=== PATIENT | male | born 1985 | race Caucasian/White ===

== ENCOUNTER 2019-12-09 15:04 | Emergency (ER) | payer SELFPAY ==
[2019-12-09 15:10] VITALS: BP 143/107; PULSE 108; RESP 20; TEMP 36.4; O2SAT 100
--- NOTE | 2019-12-09 15:24 | ED.GENADULT ---
HPI - General Adult General Chief complaint: Upper Respiratory Infection Stated complaint: Clear for work Time Seen by Provider: 12/09/19 15:20 Source: patient and RN notes reviewed Mode of arrival: ambulatory Limitations: no limitations History of Present Illness HPI narrative: Patient presents today requesting a return note for work. Reports he was sick with's to include nasal congestion, rhinorrhea, and sinus pressure. Symptoms began 2 weeks ago and lasted for 1 week. He has not had any symptoms for 7 days. He has been at home for the past 14 days on self quarantine. He did not believe that he had COVID-19 But does not have a PCP for evaluation. His employer is requiring a note for him to return back to work. During his time of illness, patient never ran a fever. History of hypertension and diabetes, but currently takes no medications. MD complaint: cold symptoms. Related Data Home Medications Medication Instructions Recorded Confirmed No Home Medications 12/09/19 12/09/19 Allergies Allergy/AdvReac Type Severity Reaction Status Date / Time No Known Allergies Allergy Verified 12/09/19 15:22 Review of Systems Review of Systems: Narrative: CONSTITUTIONAL: Denies body aches, fever, chills, or sweats. EYES: Denies visual changes, redness, or discharge. ENT: Denies rhinorrhea, congestion, sore throat, or otalgia. CARDIOVASCULAR: Denies chest pain, palpitations, or edema. RESPIRATORY: Denies cough or dyspnea. GASTROINTESTINAL: Denies abdominal pain, nausea, vomiting, or diarrhea. GENITOURINARY: Denies dysuria or hematuria. SKIN: Denies rash, itching, or wounds. MUSCULOSKELETAL: Denies back pain, joint pain, or myalgia. NEUROLOGIC: Denies headache, numbness, tingling, or weakness. PSYCH: Denies depression or anxiety. [facility] Past Medical History Medical History (Updated 12/09/19 @ 15:32 by Christine Fernandez, THERAPEUTIC ASSISTANT, ) Diabetes Hypertension Comments At time of signature, I have reviewed and agree with nursing past medical, surgical, social and family history unless otherwise noted. Please see nursing chart for further information. There is no relevant family history pertinent to the presenting complaint Exam Narrative: Exam Narrative: GENERAL: Well-appearing, well-nourished, and in no acute distress. HEAD: Normocephalic, atraumatic. EYES: EOMI. No redness or drainage. Conjunctivae normal. ENT: Mucous membranes pink and moist. Nares clear. No rhinorrhea. TMs normal bilaterally. Throat normal. Uvula midline. NECK: Normal AROM. Supple. No lymphadenopathy. CHEST: No respiratory distress. Clear to auscultation. HEART: Regular rate and rhythm. No murmur appreciated. Normal peripheral pulses. ABDOMEN: Soft, nontender, nondistended, normal active bowel sounds. MUSCULOSKELETAL: No bony tenderness. EXTREMITIES: Normal range of motion. No edema. SKIN: Warm, dry, no rash. Capillary refill normal. Normal skin turgor. NEURO: No focal deficits. Alert and oriented x3. Gait steady. PSYCH: Normal affect. No signs of depression or anxiety. Course Vital Signs Vital signs: Vital Signs Temperature 97.6 F 12/09/19 15:10 Pulse Rate 108 H 12/09/19 15:10 Respiratory Rate 12/09/19 15:10 Blood Pressure 143/107 H 12/09/19 15:10 Pulse Oximetry 100 12/09/19 15:10 Temperature 97.6 F 12/09/19 15:10 Pulse Rate 108 H 12/09/19 15:10 Respiratory Rate 12/09/19 15:10 Blood Pressure 143/107 H 12/09/19 15:10 Pulse Oximetry 100 12/09/19 15:10 Reviewed. Pt has been instructed to follow up with his PCP regarding his elevated blood pressure today. Medical Decision Making Differential Diagnosis Differential Diagnosis: Medical clearance for work, URI, viral syndrome, allergic rhinitis Vital Signs Vital Signs: Vital Signs Temperature 97.6 F 12/09/19 15:10 Pulse Rate 108 H 12/09/19 15:10 Respiratory Rate 12/09/19 15:10 Blood Pressure 143/107 H 12/09/19 15:10 Pulse Oximetry 100
== END 2019-12-09 15:35 | disposition home or self-care (01) ==
PROVIDERS: Emergency Provider Nurse Practitioner
DX: Z02.79 Encounter for issue of other medical certificate (principal); I10 Essential (primary) hypertension; E11.9 Type 2 diabetes mellitus without complications
CPT/HCPCS: 99211; G0463